=== PATIENT | male | born 1965 | race Two or more races ===

== ENCOUNTER 2016-09-18 22:26 | Inpatient (IN) | payer MEDICARE ==
[~2016-09-18] VITALS: Ht 185.4 cm; Wt 72.1 kg
[2016-09-18 21:35] VITALS: BP 113/71
--- NOTE | 2016-09-18 21:35 | NUR ---
GPS ADMISSION NOTE, RECEIVED PATIENT FROM [facility] / HOMELESS. PATIENT ARRIVED ON THIS UNIT AT 2135 VIA STRETCHER WITH 2 EMT ESCORTS. PATIENT ADMITTED ON A 5150 HOLD FOR DTO AND DTS. PER HOLD PATIENT WAS OBSERVED BY TECHNICAL PROGRAMS MANAGER RUNNING ACROSS THE STREET WITHOUT REGARD FOR HIS OWN SAFETY OR FOR THE SAFETY OF OTHERS. PATIENT ALSO APPEARED TO BE YELLING AT HIMSELF IN A STATE OF PSYCHOSIS. THE 5150 WAS REVIEWED AND THE DOCUMENTATION IN THE 5150 HOLD APPEARS TO REFLECT THE PRESENTATION OF THE PATIENT. UPON FACE TO FACE ASSESSMENT PATIENT IS CURRENTLY LYING IN BED AWAKE, HAS NO S/S OR COMPLAINTS OF PAIN. PATIENT IS DISPLAYING NO S/S OF APPARENT DISTRESS. PATIENT BREATHING IS UNLABORED WITH EQUAL RISE AND FALL OF THE CHEST. PATIENT IS ALERT AND ORIENTATED X 3 ON ROOM AIR. PATIENT ASSISTED WITH TURING AND REPOSITIONING Q2HR AND PRN FOR COMFORT AND CIRCULATION. PATIENT HAS NO NEEDS AT THIS TIME. PATIENT IS NOTED TO BEING RESTLESS, ANXIOUS, DISHEVELED, DISORGANIZED, COOPERATIVE, AND NEEDS SOME REDIRECTION. PATIENT DENIES SUICIDE IDEATIONS AND HOMICIDAL IDEATIONS AT THIS TIME. PATIENT IS UNDER THE PSYCHIATRIC CARE OF DR. KEANE AND THE MEDICAL CARE OF DR RICE. PATIENT BELONGINGS WERE INVENTORIED AND CHECKED FOR CONTRABAND. ALL CONTRABAND REMOVED AND STORED IN PATIENT HALLWAY LOCKER. PATIENT ADVANCED DIRECTIVES PREFERENCE, IMMUNIZATIONS QUESTIONER, NECESSARY PAPERWORK, AND SKIN ASSESSMENT COMPLETED. PATIENT ORIENTATED TO ROOM, FLOOR, AND STAFF WITH ALL QUESTIONS ANSWERED. PATIENT EDUCATED ON THE USE OF THE CALL GARCIA. PATIENT BED SIDE RAILS ARE UP X 2 FOR SAFETY. PATIENT BED IS LOCKED, LOW, AND I WILL CONTINUE TO MONITOR THIS PATIENT Q 15 MIN WITH THE HELP OF STAFF TO MAINTAIN SAFETY.
[2016-09-18] MEDS ORDERED: MAG HYDROX/AL HYDROX/SIMETH 30 ML UDC PO PRN (23:00)
[2016-09-18] MEDS ORDERED: TEMAZEPAM 7.5 MG CAPSULE PO PRN (23:00)
[2016-09-18] MEDS ORDERED: MAGNESIUM HYDROXIDE 30 ML UDC PO PRN (23:00)
[2016-09-18] MEDS ORDERED: LORAZEPAM 0.5 MG TABLET PO PRN (23:00)
[2016-09-18] MEDS ORDERED: ACETAMINOPHEN 325 MG TABLET PO PRN (23:00)
[2016-09-19] MEDS ORDERED: Z GUARD REMEDY 2 OZ OINT TP PRN (06:00)
--- NOTE | 2016-09-19 06:32 | NUR ---
GPS RN NOTE, PAGED DR RICE TO INFORM HIM THAT HE HAS A PATIENT ON THE FLOOR THAT NEEDS A NICOTINE PATCH ORDERED. PATIENT ALSO REFUSED TO DO LABS THIS AM. SUPERVISOR OF COMMUNICATIONS OFFERED TO DO BLOOD DRAW THREE BUT PATIENT REFUSED STATING, " I DON'T WANT MY BLOOD DRAWN SO LEAVE ME ALONE ". EDUCATED THE PATIENT ON THE RISKS AND BENEFITS OF DOING LABS. WILL CONTINUE TO MONITOR THIS PATIENT.
[2016-09-19 08:29] VITALS: BP 103/66
[2016-09-19 15:30] VITALS: BP 107/70
--- NOTE | 2016-09-19 16:00 | NUR ---
GPS/RN CALLED [facility]- NO ANSWER WITH AUTOMATIC MESSAGE: "CALL BACK LATER". DR JOESPH SHELLEY PAGED VIA METAL TILE LATHER- NO RESPONSE YET.
--- NOTE | 2016-09-19 16:51 | NUR ---
Initial discharge plan: It is reported that pt. is homeless but he provided an address of [address] [facility] [address] and states he lives there and wants to return. SW will follow up with MD and will attempt to verify living situation and will help form safe and proper discharge.
--- NOTE | 2016-09-19 19:00 | NUR ---
GPS/RN CALLED [facility]CH[facility] TO REACH MEDICAL DOCTOR . PER TEXTURE ARTIST THE PHYSICIAN DELIVERER OUTSIDE DR MUNSON WILL CALL BACK.
[2016-09-19 20:00] VITALS: BP 105/61
--- NOTE | 2016-09-19 20:03 | NUR ---
RN NOTES RECEIVED PX AWAKE AND IN BED, NO S/SX OR COMPLAINTS OF PAIN AT THIS TIME. PX IS DISPLAYING NO S/SX OF APPARENT DISTRESS AT THIS TIME. PATIENT BREATHING IS UNLABORED WITH EQUAL RISE AND FALL OF THE CHEST. PATIENT IS ALERT AND ORIENTED X 4, ON ROOM AIR WITH SPO2 98%. PATIENT IS MED COMPLIANT. PATIENT DENIES SUICIDE IDEATIONS OR HOMICIDAL IDEATIONS AT THIS TIME. PATIENT ASSISTED WITH TURNING AND REPOSITIONING Q2 HR AND PRN FOR COMFORT AND CIRCULATION. PATIENT HAS NO NEEDS AT THIS TIME. PATIENT EDUCATED ON THE USE OF THE CALL GARCIA. PATIENT BED SIDE RAILS UP X 2 FOR SAFETY, BED IS LOCKED AND LOW AND WILL CONTINUE TO MONITOR AND MAINTAIN SAFETY.
--- NOTE | 2016-09-20 01:00 | NUR ---
RN NOTES PX HAS BEEN SLEEPING SINCE 1999, NOW AWAKE AND DRANK ORANGE JUICE PER REQUEST, TRASFERRED PX TO THE ROOM 220-1; PX DENIED PAIN, SOB, N/V; DENIED NEED FOR SLEEPING PILL, DENIED ANXIETY/DEPRESSION, SAYS "IM OKAY".
--- NOTE | 2016-09-20 07:08 | NUR ---
RN NOTES NO OVERNIGHT EVENTS; PX SLEPT FOR 8.5 HOURS; DENIED PAIN, SOB, N/V; REFUSED EARLY AM CARE; CALL GARCIA WITHIN REACH; WILL ENDORSE TO NEXT RN.
[2016-09-20 08:10] VITALS: BP 110/62
[2016-09-20] MEDS: risperiDONE 1 MG TABLET PO SCH ×2 (08:49→17:00)
--- NOTE | 2016-09-20 08:50 | NUR ---
GPS/RN PT REFUSED RISPERDAL IN AM OFFERED X3.
[2016-09-20 16:17] VITALS: BP 111/70
--- NOTE | 2016-09-20 17:05 | NUR ---
GPS/RN PT REFUSED RISPERDAL IN AM OFFERED X3. PT CONFIRMED TO BE A SMOKER(OVER THE PACK A DAY) BUT DECLINED THE OFFER FOR NICOTINE PATCH WELL.
--- NOTE | 2016-09-20 19:52 | NUR ---
GPS/RN NOTE: PATIENT SITTING IN BED, NO S/S OF ANY PAIN, COMFORTABLE, RESTING. NO ACUTE DISTRESS NOTED.
[2016-09-20 20:00] VITALS: BP 111/55
[2016-09-21] MEDS: risperiDONE 1 MG TABLET PO SCH ×3 (08:29→17:34)
[2016-09-21] MEDS: NICOTINE PATCH (21MG) 21 MG PATCH.TD24 TD SCH (08:29)
--- NOTE | 2016-09-21 08:31 | NUR ---
GPS/RN PT REFUSED BLOOD DRAW OFFERED X3
--- NOTE | 2016-09-21 12:40 | NUR ---
GPS/RN PATIENT AGREED TO TAKE RISPERDAL 1 MG WITH ENCOURAGEMENT FROM DR KEANE, ADMINISTERED ORDERED.
--- NOTE | 2016-09-22 08:00 | NUR ---
GPS/RN NOTES PT. IS RESTING IN BED AWAKE, A&OX3. NO SOB, PT. IS BREATHING UNLABORED AND EVENLY ON ROOM AIR. NO S/S OF ACUTE DISTRESS. PT. SAID, " I DO NOT NEED THE NICODERM PATCH," AND WAS COMPLIANT WITH THE REST OF HIS MEDICATIONS. BED IS IN LOW POSITION, 2 SIDE RAILS UP, AND ALL NEEDS ATTENDED TO. INSTRUCTED PT. TO USE CALL LIGHT FOR ASSISTANCE, AND CALL LIGHT IS WITHIN REACH. WILL CONTINUE TO MONITOR AND MAINTAIN PT. SAFETY.
[2016-09-22] MEDS: NICOTINE PATCH (21MG) 21 MG PATCH.TD24 TD SCH (08:02)
[2016-09-22] MEDS: risperiDONE 1 MG TABLET PO SCH ×2 (08:02→16:56)
--- NOTE | 2016-09-22 20:00 | NUR ---
RN NOTES PT. REFUSED VITAL SIGNS AT 1999 , ENCOURAGED FOR VITAL SIGNS STILL REFUSED.
[2016-09-23 08:00] VITALS: BP 107/63
[2016-09-23] MEDS: risperiDONE 1 MG TABLET PO SCH (08:58)
[2016-09-23] MEDS: NICOTINE PATCH (21MG) 21 MG PATCH.TD24 TD SCH (08:59)
--- NOTE | 2016-09-23 12:02 | NUR ---
RN-CO: Probable Cause Hearing was held and there is no reason for the patient to be on a hold per Any chief knowledge officer. Therefore release by her. Dr Prajapati made aware and ordered to discontinue hold and discharge patient today. Patient attended the hearing. Dr Hu was paged to medically clear the patient. He remain calm and cooperative to care. No acute distress noted. Denied suicidal and homicidal ideation. Denied auditory and visual hallucination. Patient's advocate validated via phone call where he is going. NIA made aware. All belongings including valuables will be given back to him.
--- NOTE | 2016-09-23 12:20 | NUR ---
RN-CO: DR BILLINGSLEY MEDICALLY CLEARED PATIENT FOR DISCHARGE. PRESCRIPTION WAS CALLED AT [facility] ([address]). PATIENT REFUSED TRANSPORTATION AND STATED " IT IS OK I CAN DO IT MYSELF." ALL BELONGINGS WAS GIVEN BACK TO HIM AND HE WAS ESCORTED BY STAFF TO THE HOSPITAL LOBBY. "
--- NOTE | 2016-09-23 15:27 | NUR ---
Discharge note: Pt. was discharged to an address provided [id number] [facility] [address]. Pt. did not provide a phone number. Pt. insisted on going to this address and refused placement or a long-term referral. SW provided pt. with referral to [employer] face to face meeting at the [facility] [address] Sun 5:30 PM Upstairs, Room 8 and referral to [id number] [place] [address] for walk in anytime. Pt. was also referred to [place] [address] for an intake appointment on Thursday, September 24, at 9:00AM to discuss substance abuse. Pt. was released by the court, and did not want to stay at the hospital longer, and chose to leave without accepting transportation from the hospital. Pt. signed the homeless waiver form and was discharged. Discharge paperwork has been signed and instructions have been provided.
== END 2016-09-23 12:55 | disposition home or self-care (01) | DRG 885 ==
LOC: GPS 22:26
PROVIDERS: ADMIT Psychiatry & Neurology Psychiatry; ATTEND Psychiatry & Neurology Psychiatry
DX: F20.9 Schizophrenia, unspecified (principal); F29 Unspecified psychosis not due to a substance or known physiological condition; F19.10 Other psychoactive substance abuse, uncomplicated; Z87.891 Personal history of nicotine dependence
CPT/HCPCS: 87081-TC

== ENCOUNTER 2018-08-31 19:47 | Emergency (ER) | payer MEDICARE ==
[~2018-08-31] VITALS: Ht 177.8 cm; Wt 72.6 kg
--- NOTE | 2018-08-31 19:51 | NUR ---
PT [id number] FROM [place] OF [place], +ETOH, PT UNABLE TO PROVIDE INFO. BG 140 PER EMS. PT ON MONITOR IN BED 15. WILL CONTINUE TO MONITOR.
[2018-08-31] MEDS ORDERED: IV NS 0.9% 1,000 ML BAG IV ONE (20:00)
--- NOTE | 2018-08-31 20:58 | NUR ---
BG 88. MD AWARE.
[2018-08-31] MEDS ORDERED: HALOPERIDOL LACTATE INJ 5 MG/ML VIAL IV ONE (21:30)
[2018-08-31] MEDS ORDERED: HALOPERIDOL LACTATE INJ 5 MG/ML VIAL ONE (22:08)
--- NOTE | 2018-08-31 22:22 | NUR ---
PT TAKEN TO CT VIA BENJI
--- NOTE | 2018-08-31 22:31 | NUR ---
PT RETURNED FROM CT.
[2018-08-31 23:47] VITALS: BP 137/95
--- NOTE | 2018-09-01 07:06 | NUR ---
ambulatory with a steady gait. Patient given written and verbal discharge instructions. Patient verbalizes understanding of instructions. Patient is ambulatory with steady gait. Refuses offer of snf placement. Patient given list of available shelters in surrounding area. PT UNDERSTANDS VERBAL INSTRUCTIONS. GIVEN WEATHER APPROPRITE CLOTHING AND FOOD.
== END 2018-09-01 07:08 | disposition home or self-care (01) ==
LOC: ER 19:51
DX: F10.129 Alcohol abuse with intoxication, unspecified (principal); Y90.8 Blood alcohol level of 240 mg/100 ml or more
CPT/HCPCS: 36415; 70450; 80307; 82962; 96374; 99284; J1630; J7030; G0480